=== PATIENT | female | born 2000 ===

== ENCOUNTER 2023-07-07 06:00 | Outpatient (RCR) | payer OTHER, SELFPAY | END 2023-07-10 23:59 | disposition home or self-care (01) | LOC: GPT 06:00 | PROVIDERS: Visit Provider Orthopaedic Surgery Sports Medicine | DX: M25.561 Pain in right knee (principal) | CPT/HCPCS: 97110; 97140; 97161 ==

== ENCOUNTER 2023-07-11 06:00 | Outpatient (RCR) | payer OTHER, SELFPAY | END 2023-08-04 23:59 | disposition home or self-care (01) | LOC: GPT 06:00 | PROVIDERS: Visit Provider Orthopaedic Surgery Sports Medicine | DX: M25.561 Pain in right knee (principal) | CPT/HCPCS: 97110; 97112; 97140 ==

== ENCOUNTER 2025-01-10 05:00 | Outpatient (RCR) | payer BC, SELFPAY | END 2025-02-08 23:59 | disposition home or self-care (01) | LOC: GPT 05:00 | PROVIDERS: Visit Provider Orthopaedic Surgery | DX: Z47.89 Encounter for other orthopedic aftercare (principal); M22.2X1 Patellofemoral disorders, right knee | CPT/HCPCS: 97110; 97112; 97140; 97161 ==

== ENCOUNTER 2025-03-07 13:09 | Outpatient (RCR) | payer BC, SELFPAY | END 2025-03-11 23:59 | disposition home or self-care (01) | LOC: GPT 13:09 | PROVIDERS: Visit Provider Orthopaedic Surgery | DX: Z98.890 Other specified postprocedural states (principal) | CPT/HCPCS: 97110; 97112; 97140 ==

== ENCOUNTER 2025-03-29 13:03 | Outpatient (RCR) | payer BC, SELFPAY | END 2025-04-10 23:59 | disposition home or self-care (01) | LOC: GPT 13:03 | PROVIDERS: Visit Provider Orthopaedic Surgery | DX: Z98.890 Other specified postprocedural states (principal) | CPT/HCPCS: 97110; 97112; 97140; 97530 ==

== ENCOUNTER 2025-05-11 15:01 | Outpatient (RCR) | payer BC, SELFPAY | END 2025-05-11 23:59 | disposition home or self-care (01) | LOC: GPT 15:01 | PROVIDERS: Visit Provider Orthopaedic Surgery | DX: M25.561 Pain in right knee (principal); M25.461 Effusion, right knee; M22.2X1 Patellofemoral disorders, right knee; Z48.89 Encounter for other specified surgical aftercare | CPT/HCPCS: 97110; 97112; 97164 ==